=== PATIENT | male | born 1995 | race Caucasian/White ===

== ENCOUNTER 2021-02-10 10:05 | Emergency (ER) | payer BC, OTHER ==
[~2021-02-10] VITALS: Ht 190.5 cm; Wt 132.7 kg
[2021-02-10] MEDS ORDERED: INSU100I55 (10:19)
[2021-02-10] MEDS ORDERED: INSU200I4 (10:19)
[2021-02-10] MEDS ORDERED: CITA40TA11 (10:19)
[2021-02-10] MEDS ORDERED: ATOR10TA66 (10:19)
[2021-02-10] MEDS ORDERED: KETOROLAC 60 MG/2 ML VIAL IM ONE (10:30)
[2021-02-10] MEDS ORDERED: diphenhydrAMINE 50 MG/ML INJ (BENADRYL) IM ONE (10:30)
[2021-02-10] MEDS ORDERED: PROCHLORPERAZINE 10 MG/2ML INJ (COMPAZINE) IM ONE (10:30)
--- NOTE | 2021-02-10 10:36 | ED Head Injury ---
General Chief Complaint: Head/Cervical Problems Stated Complaint: HEADACHE Nursing Triage Note: Patient presents with migraine headache reported for 2 hrs and vomiting. Naproxen taken 0830 without relief. Source: patient Exam Limitations: no limitations History of Present Illness Date Seen by Provider: Feb 10, 2021 Time Seen by Provider: 10:00 Initial Comments Patient is a 20-year-old type I diabetic male who with history of recurrent m igraines who presents with typical migraine headache upon waking this morning. Headache is retro-orbital, described as dull and throbbing is rated moderate to severe and is worse with light and sound sensitivity. Headache is moderate to severe and is typical location severity and pattern as prior migraine headaches. He denies known trigger. Patient reports nausea without vomiting. He states he normally takes Excedrin Migraine for treatment of headaches but is currently out. He has not had anything to eat or drink and did not take his insulin this morning for that reason. Denies recent illness. He denies fever chills, sweats. No chest pain palpitations. Denies polyuria and polydipsia. Occurred: just prior to arrival Severity: moderate Location: other Method of Injury: other Associated Systoms: Other Allergies and Home Medications Allergies Coded Allergies: cefaclor (Unverified Adverse Reaction, Unknown, 02/10/21) Patient Home Medication List Home Medication List Reviewed: Yes Review of Systems Review of Systems Constitutional: see HPI Eyes: See HPI Ears, Nose, Mouth, Throat: see HPI Respiratory: see HPI Cardiovascular: see HPI Gastrointestinal: see HPI Genitourinary: see HPI Musculoskeletal: see HPI Skin: see HPI Psychiatric/Neurological: See HPI Endocrine: See HPI Hematologic/Lymphatic: See HPI All Other Systems Reviewed Negative Unless Noted: Yes Past Epzaaag-Jqwphs-Shkbst Hx Patient Social History Tobacco Use?: Yes Tobacco type used: Cigarettes Substance use?: No Alcohol Use?: No Pt feels they are or have been: No Past Medical History Surgery/Hospitalization HX: Diabetes, T&A Physical Exam Vital Signs Vital Signs - First Documented 02/10/21 10:12 Temp 36.0 Pulse 86 Resp 16 B/P (MAP) 136/86 (103) Pulse Ox 97 O2 Delivery Room Air Capillary Refill : Less Than 3 Seconds Height, Weight, BMI Height: '" Weight: lbs. oz. kg; 36.00 BMI Method: General Appearance: no apparent distress HEENT: PERRL/EOMI, normal ENT inspection Neck: non-tender, full range of motion, supple Cardiovascular: normal peripheral pulses, no edema Respiratory: chest non-tender, lungs clear, normal breath sounds Gastrointestinal: non tender, soft Back: normal inspection Extremities: normal range of motion, non-tender Psychiatric: alert, oriented x 3 Crainal Nerves: normal hearing Coordination/Gait: other Reflexes: 4+ Bicep (R), 4+ Bicep (L), 4+ Tricep (R), 4+ Tricep (L) Skin: normal color, warm/dry, cool Lymphatic: no adenopathy Norma Coma Score Best Eye Response: (4) Open Spontaneously Best Verbal Response: (5) Oriented Best Motor Response: (6) Obeys Commands Progress/Results/Core Measures Results/Orders Lab Results Laboratory Tests Test 02/10/21 10:17 Range/Units Glucometer 101 70-110 MG/DL My Orders Orders - LITO STARK DO Ketorolac Injection (Toradol Injection) (02/10/21 10:30) Prochlorperazine Injection (Compazine In (02/10/21 10:30) Diphenhydramine Injection (Benadryl Inje (02/10/21 10:30) Accucheck Fasting (02/10/21 10:20) Medications Given in ED Current Medications Medications Dose Ordered Sig/Albert Route Start Time Stop Time Status Last Admin Dose Admin Diphenhydramine HCl 100 mg ONCE ONCE IM 02/10/21 10:30 02/10/21 10:31 DC 02/10/21 10:31 50 MG Ketorolac Tromethamine 60 mg ONCE ONCE IM 02/10/21 10:30 02/10/21 10:31 DC 02/10/21 10:31 60 MG Prochlorperazine Edisylate 10 mg ONCE ONCE IM 02/10/21 10:30 02/10/21 10:31 DC 02/10/21 10:30 10 MG Vital Signs/I&O 02/10/21 10:12 Temp 36.0 Pulse 86 Resp 16 B/P (MAP) 136/86 (103) Pulse Ox 97 O2 Delivery Room Air Blood Pressure Mean: 103 Departure Communication (Admissions) Typical migraine cocktail provided. Blood sugar checked and normal. Patient resting comfortably on reevaluation. Recommend supportive care and resume diabetic diet and insulin schedule. PCP follow-up as needed. Return precautions reviewed. Impression Primary Impression: Migraine Disposition: HOME, SELF-CARE Condition: Stable Departure-Patient Inst. Decision time for Depature: 11:28 Referrals: NEISHA SENIOR MD (PCP/Family) Primary Care Physician Patient Instructions: Migraines in Adults Add. Discharge Instructions: Please go home and rest. Take Excedrin Migraine and Compazine as needed if headache returns. Follow-up with your PCP for reevaluation and further jolene gement. Resume diabetic diet and home insulin schedule. All discharge instructions reviewed with patient and/or family. Voiced understanding. Scripts Prochlorperazine Maleate (Compazine) 10 Mg Tablet 10 MG PO TID, #10 TAB Prov: LITO STARK DO 02/10/21 LITO STARK DO Feb 10, 2021 10:36
[2021-02-10] MEDS ORDERED: PROC-1 PO (11:29)
[2021-02-10] MEDS ORDERED: oxyCODONE/APAP 5/325MG (PERCOCET 5) TABLET PO ONE (12:30)
[2021-02-10 12:54] VITALS: BP 148/76
== END 2021-02-10 12:54 | disposition home or self-care (01) ==
LOC: EDUNIT# 10:05 → ER FS 10:07
DX: G43.909 Migraine, unspecified, not intractable, without status migrainosus (principal); E10.9 Type 1 diabetes mellitus without complications
CPT/HCPCS: 82947; 99284